=== PATIENT | male | born 1995 | race Caucasian/White ===

== ENCOUNTER 2019-04-18 00:12 | Emergency (ER) | payer OTHER ==
[~2019-04-18] VITALS: Ht 180.3 cm; Wt 88.5 kg
[2019-04-18 00:15] VITALS: BP 126/82; Ht 180.3 cm; Wt 88.5 kg
== END 2019-04-18 02:00 | disposition home or self-care (01) ==
LOC: ED 00:12
DX: Z02.89 Encounter for other administrative examinations (principal)